=== PATIENT | female | born 1970 | race Two or more races ===

== ENCOUNTER 2017-09-15 19:52 | Emergency (ER) | payer OTHER ==
[~2017-09-15] VITALS: Ht 160 cm; Wt 65.9 kg
[2017-09-15 21:38] VITALS: BP 125/80
== END 2017-09-15 21:53 | disposition home or self-care (01) ==
LOC: ED 21:47
DX: T39.1X1A Poisoning by 4-Aminophenol derivatives, accidental (unintentional), initial encounter (principal); R40.0 Somnolence
CPT/HCPCS: 99283